=== PATIENT | male | born 1955 | race Caucasian/White ===

== ENCOUNTER 2023-10-06 19:09 | Inpatient (IN) | payer SELFPAY ==
[2023-10-06 21:06] LABS: #Basophils 0.1 thou/uL (0.0-0.2); #Eosinphils 0.1 thou/uL (0.0-0.7); #Monocytes 0.6 thou/uL (0.11-0.59); #Neutrophils 6.7 thou/uL (1.40-6.50); %Basophils 0.6 % (0.0-1.0); %Eosinophils 0.5 % (0.0-10.0); %Lymphocytes 27.1 % (21.0-51.0); %Monocytes 6.2 % (0.0-10.0); %Neutrophils 65.3 % (42.0-75.0); Mean Corpuscular HGB CONC 31.4 g/dL (32.0-36.0); Mean Corpuscular Volume 92.4 fl (78.0-98.0); Mean Platelet Volume 10.1 fL (7.4-10.4); Platelet Count 326 10x3/uL (130-400); RBC Distribution Width 14.6 % (11.5-14.5); Red Blood Cell (RBC) Count 5.52 mill/uL (4.70-6.10); White Blood Cell (WBC) Count 10.2 10x3/uL (4.8-10.8)
[2023-10-06 21:29] LABS: ALT (SGPT) 52 U/L (8-55); AST (SGOT) 76 U/L (5-34); Albumin 4.3 g/dL (3.4-4.8); Alkaline Phosphatase 97 U/L (40-110); Anion Gap 18 mmol/L (10-20); BUN (Urea Nitrogen) 42 mg/dL (8.4-25.7); Bilirubin, Total 1.7 mg/dL (0.2-1.2); Calc. Creatinine Clearance 0 mL/min (70-130); Carbon Dioxide 20 mmol/L (23-31); Chloride 105 mmol/L (98-107); Estimated GFR 34; Globulin 2.4 g/dL (2.4-3.5); Glucose 87 mg/dL (80-115); Potassium 5.1 mmol/L (3.5-5.1); Protein, Total 6.7 g/dL (5.8-8.1); Sodium 138 mmol/L (136-145)
[2023-10-06 21:32] LABS: Troponin I 0.095 ng/mL (< 0.028)
[2023-10-06] MEDS ORDERED: Ondansetron PF 4 MG/2 ML Vial IVP PRN (21:52)
[2023-10-06] MEDS ORDERED: Acetaminophen 325 MG TAB PO PRN (21:52)
[2023-10-06 22:36] LABS: Actual Bicarbonate (HCO3a) 19.6 mEq/L (22-28); Base Excess (BEa) -3.1 mEq/L (-2.0 to +3.0); CO2 Tension 29.2 mmHg (35.0-45.0); Calcium, Ionized (arterial) 1.12 mmol/L (1.12-1.30); Hematocrit-ABG 44 % (42.0-52.0); Hemoglobin (Hb) 14.9 g/dL (14.0-18.0); O2 Tension (PaO2), arterial 90.8 mmHg (> 80.0); Potassium - ABG Lab 4.36 mmol/L (3.70-5.30); pH, Arterial 7.445 (7.35-7.45)
[2023-10-06 22:37] LABS: Puncture Site LRA
[2023-10-06 22:44] LABS: Acetaminophen Less than 10 mcg/mL (10.0-30.0); Alcohol Less than 10.0 mg/dL (Less than 10); Salicylate Less than 8.0 mg/dL (15.0-30.0)
[2023-10-06 23:23] VITALS: BMI 27.9
[2023-10-07 00:07] LABS: Bilirubin Negative (Negative); Blood, Urine Negative (Negative); Clarity Turbid (Clear); Glucose, Urine (Dipstick) Normal (Negative); Ketone, Urine Negative (Negative); Leukocyte Negative Leu/uL (Negative); Nitrite Negative (Negative); Protein, Urine (Dipstick) 70 mg/dL (Neg-Trace); Specific Gravity, Urine 1.023 (1.002-1.036)
[2023-10-07 00:18] LABS: Amphetamine Detected (NotDetected); Barbiturates Screen Not Detected (NotDetected); Benzodiazepine Screen Not Detected (NotDetected); Cocaine Metabolite Screen Not Detected (NotDetected); Methadone Not Detected (NotDetected); Methamphetamine Detected (NotDetected); Opiate Screen Not Detected (NotDetected); Oxycodone Screen Not Detected (NotDetected); Phencyclidine (PCP) Not Detected (NotDetected); THC/Cannabinoid Screen Not Detected (NotDetected); Tricyclic Screen Not Detected (NotDetected)
[2023-10-07 00:21] LABS: Bacteria/HPF 2+ HPF (None Seen)
[2023-10-07 00:22] LABS: Squamous Epithelial 0-3 HPF (0-3)
[2023-10-07 00:24] LABS: RBC/HPF 0-3 HPF (0-3)
[2023-10-07 01:26] LABS: Magnesium 1.9 mg/dL (1.6-2.6)
[2023-10-07 01:36] LABS: Troponin I 0.065 ng/mL (< 0.028)
[2023-10-07 04:40] LABS: #Basophils 0.1 thou/uL (0.0-0.2); #Monocytes 0.9 thou/uL (0.11-0.59); #Neutrophils 8.2 thou/uL (1.40-6.50); %Basophils 0.5 % (0.0-1.0); %Eosinophils 0.4 % (0.0-10.0); %Lymphocytes 18.1 % (21.0-51.0); %Monocytes 7.9 % (0.0-10.0); %Neutrophils 72.7 % (42.0-75.0); Hematocrit 46.5 % (42.0-52.0); Hemoglobin 15.1 g/dL (14.0-18.0); Mean Corpuscular HGB CONC 32.5 g/dL (32.0-36.0); Mean Corpuscular Hemoglobin 29.7 pg (27.0-31.0); Mean Corpuscular Volume 91.5 fl (78.0-98.0); Platelet Count 303 10x3/uL (130-400); RBC Distribution Width 14.4 % (11.5-14.5); Red Blood Cell (RBC) Count 5.08 mill/uL (4.70-6.10); White Blood Cell (WBC) Count 11.3 10x3/uL (4.8-10.8)
[2023-10-07 05:04] LABS: ALT (SGPT) 140 U/L (8-55); AST (SGOT) 263 U/L (5-34); Alkaline Phosphatase 95 U/L (40-110); Anion Gap 16 mmol/L (10-20); BUN (Urea Nitrogen) 46 mg/dL (8.4-25.7); Calc. Creatinine Clearance 46 mL/min (70-130); Calcium 9.1 mg/dL (7.8-10.44); Carbon Dioxide 21 mmol/L (23-31); Chloride 103 mmol/L (98-107); Estimated GFR 37; Globulin 2.5 g/dL (2.4-3.5); Glucose 88 mg/dL (80-115); Potassium 4.8 mmol/L (3.5-5.1); Protein, Total 6.5 g/dL (5.8-8.1); Sodium 135 mmol/L (136-145)
[2023-10-07 05:07] LABS: Troponin I 0.088 ng/mL (< 0.028)
[2023-10-07 06:17] LABS: SARS-CoV-2 NAA Rapid Test Not Detected (NotDetected)
[2023-10-07] MEDS ORDERED: Electrolyte Replacement Protocol 1 EACH FS SCH (09:45)
[2023-10-07] MEDS: Heparin 5,000 UNITS/ML VIAL SC SCH ×2 (09:49→21:31)
[2023-10-07] MEDS ORDERED: Ipratropium/Albuterol 3 ML NEB NEB PRN (09:57)
[2023-10-07] MEDS ORDERED: Magnesium 2 GM/50 ML BAG (IN WATER) ONE (10:53)
[2023-10-07] MEDS ORDERED: Magnesium 2 GM/50 ML(in water) 2 GM in Premix 1 BAG IVPB SCH (11:00)
[2023-10-07] MEDS ORDERED: methylPREDNISolone Sod Succ 40 MG VIAL ONE (13:43)
[2023-10-07] MEDS: methylPREDNISolone Sod Succ 40 MG VIAL IVP SCH ×2 (14:00→21:31)
[2023-10-07] MEDS: Mometasone/Formoterol 200/5 60 PUFF INH SCH (17:58)
[2023-10-07] MEDS: Doxycycline 100 MG CAP PO SCH (21:31)
[2023-10-08 05:40] LABS: #Monocytes 0.2 thou/uL (0.11-0.59); #Neutrophils 7.8 thou/uL (1.40-6.50); %Basophils 0.1 % (0.0-1.0); %Lymphocytes 14.1 % (21.0-51.0); %Monocytes 1.8 % (0.0-10.0); %Neutrophils 83.7 % (42.0-75.0); Hematocrit 50.4 % (42.0-52.0); Hemoglobin 15.8 g/dL (14.0-18.0); Mean Corpuscular HGB CONC 31.3 g/dL (32.0-36.0); Mean Corpuscular Hemoglobin 29.3 pg (27.0-31.0); Mean Corpuscular Volume 93.5 fl (78.0-98.0); Mean Platelet Volume 10.6 fL (7.4-10.4); Platelet Count 332 10x3/uL (130-400); RBC Distribution Width 14.6 % (11.5-14.5); Red Blood Cell (RBC) Count 5.39 mill/uL (4.70-6.10); White Blood Cell (WBC) Count 9.3 10x3/uL (4.8-10.8)
[2023-10-08] MEDS: methylPREDNISolone Sod Succ 40 MG VIAL IVP SCH ×2 (05:47→15:00)
[2023-10-08 06:06] LABS: ALT (SGPT) 295 U/L (8-55); AST (SGOT) 440 U/L (5-34); Albumin 4.2 g/dL (3.4-4.8); Alkaline Phosphatase 105 U/L (40-110); Anion Gap 20 mmol/L (10-20); BUN (Urea Nitrogen) 51 mg/dL (8.4-25.7); Bilirubin, Total 1.6 mg/dL (0.2-1.2); Calc. Creatinine Clearance 40 mL/min (70-130); Calcium 8.9 mg/dL (7.8-10.44); Carbon Dioxide 16 mmol/L (23-31); Chloride 102 mmol/L (98-107); Estimated GFR 36; Globulin 2.9 g/dL (2.4-3.5); Glucose 166 mg/dL (80-115); Magnesium 2.4 mg/dL (1.6-2.6); Potassium 4.9 mmol/L (3.5-5.1); Protein, Total 7.1 g/dL (5.8-8.1); Sodium 133 mmol/L (136-145)
[2023-10-08] MEDS: Mometasone/Formoterol 200/5 60 PUFF INH SCH (07:31)
[2023-10-08] MEDS ORDERED: Carvedilol 3.125 MG TAB PO SCH (08:00)
[2023-10-08] MEDS ORDERED: Aspirin 81 mg Enteric Coated Tablet PO SCH (09:00)
[2023-10-08] MEDS: Heparin 5,000 UNITS/ML VIAL SC SCH (09:37)
[2023-10-08] MEDS: Doxycycline 100 MG CAP PO SCH (09:38)
[2023-10-08] MEDS ORDERED: Atorvastatin Calcium 40 MG TAB PO SCH (11:15)
[2023-10-08 16:37] VITALS: BP 104/71; TEMP 97.2
[2023-10-09] MEDS ORDERED: Atorvastatin Calcium 40 MG TAB PO SCH (09:00)
== END 2023-10-08 16:15 | disposition home or self-care (01) | DRG 291 ==
LOC: ERS 19:09 → ERHOLD 21:49 → 2NO 10-07 17:00
PROVIDERS: ADMIT Internal Medicine; ATTEND Internal Medicine
PROC: 4A033R1 Measurement of Arterial Saturation, Peripheral, Percutaneous Approach (ICD-10-PCS; principal; 2023-10-06)
DX: I13.0 Hypertensive heart and chronic kidney disease with heart failure and stage 1 through stage 4 chronic kidney disease, or unspecified chronic kidney disease (principal); G93.41 Metabolic encephalopathy; I50.23 Acute on chronic systolic (congestive) heart failure; J96.01 Acute respiratory failure with hypoxia; N17.9 Acute kidney failure, unspecified; E87.1 Hypo-osmolality and hyponatremia; Z98.890 Other specified postprocedural states; F17.210 Nicotine dependence, cigarettes, uncomplicated; Z79.899 Other long term (current) drug therapy; Z79.82 Long term (current) use of aspirin; N18.9 Chronic kidney disease, unspecified; Z82.49 Family history of ischemic heart disease and other diseases of the circulatory system; R79.89 Other specified abnormal findings of blood chemistry; J44.9 Chronic obstructive pulmonary disease, unspecified; R74.01 Elevation of levels of liver transaminase levels; I42.9 Cardiomyopathy, unspecified; F15.10 Other stimulant abuse, uncomplicated; Z11.52 Encounter for screening for COVID-19
CPT/HCPCS: 36415; 36600; 70450; 80053; 80306; 80307; 81001; 82805; 83735; 84484; 85025; 93005; 93306; 93970; J1644; J2920; J3475